=== PATIENT | female | born 1970 | race Caucasian/White ===

== ENCOUNTER 2017-12-03 10:12 | Inpatient (IN) | payer SELFPAY ==
[2017-12-03] VITALS (191 sets, daily range): BP systolic 166–174; BP diastolic 103–108; PULSE 102–105; TEMP 98.1–98.7; O2SAT 88–99
[~2017-12-03] VITALS: Ht 167.6 cm; Wt 83.1 kg
[2017-12-03 11:27] LABS: HEMOGLOBIN 11.5 g/dl (12.5-16.0); MEAN CELL VOLUME 83 fl (80.0-100.0); MEAN CORPUSCULAR HEMOGLOBIN 27 pg (27.0-31.0); MEAN CORPUSCULAR HGB CONC 32 g/dl (33.0-37.0); MEAN PLATELET VOLUME 9.5 fl (7.4-10.4); PLATELET COUNT 404 K/mm3 (130-400); RED BLOOD COUNT 4.29 M/mm3 (4.10-5.30); REDCELL DISTRIBUTION WIDTH-CV 14.8 % (11.5-14.5)
[2017-12-03 11:29] LABS: INR 0.8 (0.8-3.0); PROTHROMBIN TIME 9.2 SECONDS (9.7-12.8)
[2017-12-03 11:33] LABS: HEMATOCRIT 35.8 % (37.0-47.0)
[2017-12-03 11:34] LABS: ALBUMIN 3.6 gm/dL (3.5-5.0); BILIRUBIN,TOTAL 0.5 mg/dL (0.0-1.0); CALCIUM 9.2 mg/dL (8.4-10.2); CREATININE, serum 0.69 mg/dL (0.52-1.25); POTASSIUM 3.1 mmol/L (3.4-5.0); TOTAL PROTEIN 6.7 gm/dL (6.4-8.2)
[2017-12-03 11:36] LABS: D-DIMER < 200.00 ng/mLDDu (200-230)
[2017-12-03 11:49] LABS: TROPONIN-I 0.069 ng/mL (0.000-0.034)
[2017-12-03 12:11] LABS: BAND 1 % (0-10); NEUTROPHILS 99 % (42.0-75.2)
[2017-12-03 12:12] LABS: PLATELET ESTIMATE INCREASED (NORMAL); POLYCHROMASIA 2+; TOXIC GRANULATION PRESENT
[2017-12-03 12:45] LABS: COLLECTION METHOD CLEAN CATCH
[2017-12-03 12:51] LABS: MUCOUS Present /lpf; PH 6 (5-8); SQUAMOUS EPITHELIAL None Seen /hpf; URINE APPEARANCE Clear; URINE BACTERIA None Seen /hpf; URINE BILIRUBIN Negative (NEGATIVE); URINE BLOOD Negative (NEGATIVE); URINE COLOR Yellow; URINE GLUCOSE 1+ (NEGATIVE); URINE KETONE Negative (NEGATIVE); URINE LEUKOCYTE ESTERASE Negative (NEGATIVE); URINE NITRATE Negative (NEGATIVE); URINE PROTEIN(semi-quant) 1+ (NEGATIVE); URINE RBC 0-2 /hpf; URINE UROBILINOGEN Negative (NEGATIVE)
[2017-12-04] VITALS (453 sets, daily range): BP systolic 128–167; BP diastolic 75–108; PULSE 68–104; TEMP 97.5–98; O2SAT 84–100
[2017-12-04 06:28] LABS: BASO % 0.2 % (0.0-2.0); EOS % 0.2 % (0-4.0); GRAN # 13.9 (1.4-6.5); GRAN % 72.5 % (42.2-75.2); HEMATOCRIT 34.8 % (37.0-47.0); HEMOGLOBIN 11.1 g/dl (12.5-16.0); LYMPH # 4.2 (1.2-3.4); LYMPH % 21.9 % (20.0-51.0); MEAN CELL VOLUME 84 fl (80.0-100.0); MEAN CORPUSCULAR HEMOGLOBIN 27 pg (27.0-31.0); MEAN CORPUSCULAR HGB CONC 32 g/dl (33.0-37.0); MEAN PLATELET VOLUME 9.9 fl (7.4-10.4); MONO # 0.9 (0.1-0.6); MONO % 4.5 % (1.7-9.3); PLATELET COUNT 356 K/mm3 (130-400); RED BLOOD COUNT 4.17 M/mm3 (4.10-5.30); REDCELL DISTRIBUTION WIDTH-CV 14.6 % (11.5-14.5)
[2017-12-04 06:38] LABS: CALCIUM 8.5 mg/dL (8.4-10.2); CHOLESTEROL RISK RATIO 2.8; CREATININE, serum 0.74 mg/dL (0.52-1.25); MAGNESIUM 1.9 mg/dL (1.6-2.3)
[2017-12-04 06:44] LABS: POTASSIUM 2.9 mmol/L (3.4-5.0)
[2017-12-04 07:05] LABS: TROPONIN-I 0.079 ng/mL (0.000-0.034)
[2017-12-04 15:26] LABS: CALCIUM 8.6 mg/dL (8.4-10.2); CREATININE, serum 0.79 mg/dL (0.52-1.25); POTASSIUM 3.4 mmol/L (3.4-5.0)
[2017-12-04 15:39] LABS: TROPONIN-I 0.059 ng/mL (0.000-0.034)
[2017-12-04] MEDS ORDERED: COREG 6.256.25 MG/TA PO (16:05)
[2017-12-04] MEDS ORDERED: ASPIRIN 81M81 MG/TA2 PO (16:05)
[2017-12-04] MEDS ORDERED: ZESTRIL 20MG TA20 MG PO (16:05)
== END 2017-12-04 16:17 | disposition home or self-care (01) | DRG 282 ==
LOC: COL.ER 10:12 → ICU 12:48 → EDBEDREQ 17:43 → ICU 18:31
PROVIDERS: Emergency Medicine; Family Medicine; Physician Assistant; Physician Assistant Medical
DX: I11.0 Hypertensive heart disease with heart failure (principal); I21.A1 Myocardial infarction type 2; I50.9 Heart failure, unspecified; I16.0 Hypertensive urgency; D72.829 Elevated white blood cell count, unspecified; E87.6 Hypokalemia; J44.9 Chronic obstructive pulmonary disease, unspecified; F15.10 Other stimulant abuse, uncomplicated
CPT/HCPCS: 99223-AI; 99232-AI; 99239; G0378; J1940; J2270; J3480

== ENCOUNTER → 2018-02-01 | Outpatient (CLI) | payer OTHER ==
[~2018-02-01] MED LIST: ASPIRIN 81M81 MG/TA2 PO; COREG 6.256.25 MG/TA PO; ZESTRIL 20MG TA20 MG PO
== END ==
LOC: COL.PUL 09:58
DX: Z02.71 Encounter for disability determination (principal); F17.210 Nicotine dependence, cigarettes, uncomplicated

== ENCOUNTER 2019-03-01 14:43 | Inpatient (IN) | payer SELFPAY ==
[~2019-03-01] VITALS: Ht 167.6 cm; Wt 85.8 kg
[2019-03-01 15:35] LABS: BASO # 0.1 (0.0-0.2); BASO % 0.4 % (0.0-2.0); EOS # 0.1 (0.0-0.7); EOS % 0.7 % (0-4.0); GRAN # 13.1 (1.4-6.5); GRAN % 81.4 % (42.2-75.2); HEMATOCRIT 39.2 % (37.0-47.0); HEMOGLOBIN 12.6 g/dl (12.5-16.0); LYMPH # 2.1 (1.2-3.4); MEAN CELL VOLUME 81 fl (80.0-100.0); MEAN CORPUSCULAR HEMOGLOBIN 26 pg (27.0-31.0); MEAN CORPUSCULAR HGB CONC 32 g/dl (33.0-37.0); MEAN PLATELET VOLUME 9.6 fl (7.4-10.4); MONO # 0.6 (0.1-0.6); MONO % 3.7 % (1.7-9.3); PLATELET COUNT 512 K/mm3 (130-400); RED BLOOD COUNT 4.85 M/mm3 (4.10-5.30); REDCELL DISTRIBUTION WIDTH-CV 14.3 % (11.5-14.5)
[2019-03-01 15:41] LABS: ALBUMIN 4.2 gm/dL (3.5-5.0); BILIRUBIN,TOTAL 0.5 mg/dL (0.0-1.0); CALCIUM 9.2 mg/dL (8.4-10.2); CREATININE, serum 0.75 (0.52-1.25); POTASSIUM 3.6 mmol/L (3.4-5.0); TOTAL PROTEIN 7.7 gm/dL (6.4-8.2)
[2019-03-01 15:54] LABS: TROPONIN-I 0.037 ng/mL (0.000-0.035)
[2019-03-01] MEDS ORDERED: PLAVIX 75MG TAB75 MG PO (21:25)
[2019-03-01] MEDS ORDERED: COREG12.5 MG PO (21:26)
[2019-03-01] MEDS ORDERED: DIFLUCAN150 MG PO (21:27)
[2019-03-01] MEDS ORDERED: PRIL40 PO (21:28)
[2019-03-01] MEDS ORDERED: PREDNISONE20 MG PO (21:29)
[2019-03-01] MEDS ORDERED: NORVASC 5MG5 MG/TAB PO (21:29)
[2019-03-01] MEDS ORDERED: BEVESPI AEROS10.7 GM IH (21:30)
[2019-03-01] MEDS ORDERED: VENTOLIN0.09 MG IH (21:30)
[2019-03-01] MEDS ORDERED: COZAAR 50MG50 MG/TAB PO (21:31)
[2019-03-01 22:18] VITALS: BP 148/91; PULSE 96; TEMP 97.7
--- NOTE | 2019-03-01 22:30 | NUR ---
Patient arrived to medical floor at approximately 2100 from ER. Alert and oriented x 4, and able to make needs known. Denies having pain and discomfort at this time. Does report SOB with exertion. Breathing labored, shallow respirations. Unlabored at rest. LS expiratory wheezes throughout. HRR. Telemetry in place. Capillary refill less than 3 seconds. Non-tenting skin turgor. Stated that she felt hot and sweaty and wanted to take a shower. PRINCIPAL RESEARCH ECONOMIST assisted patient with shower. Stated she felt much better afterwards. Voices no other questions, needs, or concerns at this time. Periphearl IV to right hand and left AC flushed. Both sites are without redness, warmth, swelling, and pain. Resting in bed with call light within reach.
[2019-03-01 23:41] VITALS: BP 141/83; PULSE 84; TEMP 98.1
--- NOTE | 2019-03-02 00:05 | NUR ---
Patient stated that she wanted to be a DNR, and verified that she did not, for any reason, want her heart restarted if it was to stop. Called and spoke with Dr. Ceron, who gave order for DNR.
[2019-03-02 03:32] VITALS: BP 145/63; BP 163/101; PULSE 92; TEMP 98.3
--- NOTE | 2019-03-02 04:42 | NUR ---
Patient given PRN breathing treatment for wheezes by RT. Reports cough. Given orange juice and jello as requested for dry mouth. Resting in bed with eyes closed at this time. Call light is within reach.
[2019-03-02 07:52] LABS: BASO % 0.2 % (0.0-2.0); EOS % 0.1 % (0-4.0); GRAN # 13.2 (1.4-6.5); GRAN % 84.7 % (42.2-75.2); HEMOGLOBIN 11.5 g/dl (12.5-16.0); LYMPH # 1.6 (1.2-3.4); LYMPH % 10.2 % (20.0-51.0); MEAN CELL VOLUME 81 fl (80.0-100.0); MEAN CORPUSCULAR HEMOGLOBIN 26 pg (27.0-31.0); MEAN CORPUSCULAR HGB CONC 32 g/dl (33.0-37.0); MEAN PLATELET VOLUME 9.4 fl (7.4-10.4); MONO # 0.6 (0.1-0.6); MONO % 4.1 % (1.7-9.3); REDCELL DISTRIBUTION WIDTH-CV 14.4 % (11.5-14.5)
[2019-03-02 07:58] VITALS: BP 160/80; PULSE 89; TEMP 98.1
[2019-03-02 08:04] LABS: CHOLESTEROL RISK RATIO 3.3
[2019-03-02 08:07] LABS: HEMATOCRIT 36.4 % (37.0-47.0); PLATELET COUNT 385 K/mm3 (130-400)
[2019-03-02 08:13] LABS: ALBUMIN 3.9 gm/dL (3.5-5.0); BILIRUBIN,TOTAL 0.3 mg/dL (0.0-1.0); CALCIUM 8.9 mg/dL (8.4-10.2); CREATININE, serum 0.66 (0.52-1.25); POTASSIUM 3.3 mmol/L (3.4-5.0); TOTAL PROTEIN 6.9 gm/dL (6.4-8.2)
--- NOTE | 2019-03-02 09:20 | NUR ---
Pt assessment complete. Pt is sitting up in bed, seems anxious and fidgety. She is A/O x3. Her breathing is tachy, pt reports SOB. Pt currently on RA. She reports a continued dry cough, PRN cough medicine administered. Pt denies any pain. No N/V, ate breakfast without complications. POC discussed with pt who verbalizes understanding. Call light within reach.
--- NOTE | 2019-03-02 09:44 | NUR ---
SW attended clinical rounds to discuss discharge planning. Patient lives alone in [place]. Patient reports her daughter lives in as well and is supportive financially. Patient's PCP is Dr Last Cristina and she [place] [facility] reports she has difficulty paying for medications because she does not have insurance. Patient reports she uses [employer] coupons and receives financial support from family. 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 Patient has applied for medicaid in the past but reports she was denied and is unsure of the reason. SW reports she will speak to the [facility] counselor and she will meet with patient. SW reports that at the time of discharge, SW will assit with finding [employer] coupons for new medications. SW also reported that she may be able to provide a medication voucher. SW will continue to follow.
[2019-03-02 12:23] VITALS: BP 119/86; PULSE 97; TEMP 97.7
--- NOTE | 2019-03-02 13:36 | NUR ---
Pt wore bipap for short amount of time. Now has it off and sleeping. Breathing even and unlabored does not appear to be in any respiratory distress. Will continue to monitor.
--- NOTE | 2019-03-02 15:23 | NUR ---
Pt agreeable to wear bipap at this time stating, "whatever will help me get better faster". Use of bipap explained to patient. No needs at this time.
[2019-03-02 17:50] VITALS: BP 157/86; PULSE 89; TEMP 98.8
--- NOTE | 2019-03-02 18:09 | NUR ---
Pt had uneventful day, she remained on RA. Ambulating without difficulty breathing. She wore the bipap for a short period of time today. Pt reported excessive coughing and wheezing after eating, PLANS EXAMINER reports patient eats VERY fast amongst breathing fast. Pt encouraged to slow PO intake. She denies feeling as if she is aspirating food into lungs and reports she has had a lot of esophageal issues in the past requiring scopes and medications. ODALYS Cunningham notified. This nurse has witnessed patient taking pills without difficulty, coughing or choking as well as eating snacks without difficulties. Pt in shower at this time. POC discussed with patient who verbalizes understanding. Will continue to monitor.
[2019-03-02 19:34] VITALS: BP 156/95; PULSE 99; TEMP 99.2
--- NOTE | 2019-03-02 20:00 | NUR ---
Patient assessed at this time. Alert and oriented x 4, and able to make needs known. Denies having pain and discomfort. Peripheral IV to left AC and right hand flushed. Sites are without redness, warmth, swelling, and pain. Does complain of SOB and dyspnea at rest, especially after eatting. On room air. Does have BIPAP, and encouraged use. Compains that mask irritates her nose, but states she will try and wear it when she sleeps. LS with inspiratory and expiratory wheezes throughout, and coarse crackles in lower lobes. Respirations shallow and labored. Encouraged to take slow, deep breaths, which helped. Took self for a walk. HRR. Telemetry in place. Capillary refill less than 3 seconds. Non-tenting skin turgor. BSAx4. Abdomen soft and non-tender. No edema noted. Voices no questions, needs, or concerns at this time. Resting in bed with call light within reach.
[2019-03-02 23:46] VITALS: BP 134/65; PULSE 86; TEMP 98.3
--- NOTE | 2019-03-03 02:46 | NUR ---
Patient complaining of pain to peripheral IV to left AC. Requested IV site to be D/C'd. Peripheral IV to right hand working well. D/C'd IV site to left AC for patient comfort as requested. Voices no other questions, needs, or concerns at this time. Wore BIPAP until about 0130. Has been awake in room snacking and walking around since. In bed on phone at this time. Call light is within reach.
[2019-03-03 04:00] VITALS: BP 159/82; PULSE 92; TEMP 98.2
--- NOTE | 2019-03-03 04:20 | NUR ---
Patient given PRN Robitussin as requested for cough. Voices no other questions, needs, or concerns at this time. Resting in bed with call light within reach.
[2019-03-03 06:49] LABS: HEMATOCRIT 34.6 % (37.0-47.0); HEMOGLOBIN 10.8 g/dl (12.5-16.0); MEAN CELL VOLUME 82 fl (80.0-100.0); MEAN CORPUSCULAR HEMOGLOBIN 26 pg (27.0-31.0); MEAN CORPUSCULAR HGB CONC 31 g/dl (33.0-37.0); PLATELET COUNT 400 K/mm3 (130-400); RED BLOOD COUNT 4.22 M/mm3 (4.10-5.30); REDCELL DISTRIBUTION WIDTH-CV 14.6 % (11.5-14.5)
[2019-03-03 07:09] LABS: CALCIUM 9.2 mg/dL (8.4-10.2); CREATININE, serum 0.62 (0.52-1.25); POTASSIUM 4.1 mmol/L (3.4-5.0)
[2019-03-03 07:32] LABS: LYMPHOCYTE 6 % (20.0-51.0); NEUTROPHILS 93 % (42.0-75.2); PLATELET ESTIMATE NORMAL (NORMAL)
[2019-03-03 10:31] VITALS: BP 162/82; PULSE 78; TEMP 98
[2019-03-03 15:38] VITALS: BP 122/55; PULSE 79; TEMP 98.9
--- NOTE | 2019-03-03 19:34 | NUR ---
PT C/O COUGH THROUGOUT DAY, ADMINSTERED PRN COUGH SYURP A COUPLE TIMES. PT HAS C/O DIARREAH TODAY, THIS NURSE INFORMED COLLETTE LAWRENCE AND RECIEVED VERBAL ORDER TO GET A STOOL SAMPLE ON HER, PT AWARE. ZHANG ZAMORA STATED THAT THEY DIDNT SEE ANY ISSUES WITH SWALLOW STUDY TODAY. ENDOSCOPY PLANNED FOR TOMORROW AT 1330, PROVIDER IN TO TALK TO PT ABOUT PROCEDURE. PT HAS BEEN ON RA ANS SATS REMAIN WNL. PT REMAINS HAVING NOTE ANXIETY.
--- NOTE | 2019-03-03 20:30 | NUR ---
Patient assessed at this time. Alert and oriented x 4, and able to make needs known. Patient does complain of SOB and dyspnea on exertion. Labored breathing when up moving around. LS with inspiratory and expiratory wheezes throughout, and coarse crackles in lower lobes. HRR. Telemetry in place. Capillary refill less than 3 seconds. Non-tenting skin turgor. BSAx4. Abdomen soft and non-tender. Stool sample obtained and taken to lab to test for C-diff. Continues to report loose stools. No edema noted. Patient took shower. During shower, IV to right hand came out. Attempted to place new once, but unable. This nurse attempted x 2, another nurse attempted x 2. Refusing any further attempts at this time.
[2019-03-03 21:24] VITALS: BP 162/84; PULSE 91; TEMP 98.5
[2019-03-03 23:12] VITALS: BP 153/78; PULSE 83; TEMP 98.3
--- NOTE | 2019-03-03 23:20 | NUR ---
Spoke with NADIR eckert unable to get IV access at this time. Patient did agree that she will let someone else try, but not until later on. NADIR ok with this. C-diff negative. Requested PRN Imodium and PRN melatonin to help patient sleep as requested. Orders received, and given as ordered. Voices no other questions, needs, or concerns at this time. Resting in bed with call light within reach.
[2019-03-04 04:05] VITALS: BP 154/72; BP 167/80; PULSE 84; TEMP 98.4
[2019-03-04 06:25] LABS: HEMOGLOBIN 10.1 g/dl (12.5-16.0); MEAN CELL VOLUME 84 fl (80.0-100.0); MEAN CORPUSCULAR HEMOGLOBIN 25 pg (27.0-31.0); MEAN CORPUSCULAR HGB CONC 30 g/dl (33.0-37.0); MEAN PLATELET VOLUME 11.3 fl (7.4-10.4); RED BLOOD COUNT 3.97 M/mm3 (4.10-5.30)
[2019-03-04 06:33] LABS: HEMATOCRIT 33.4 % (37.0-47.0); PLATELET COUNT 254 K/mm3 (130-400)
[2019-03-04 06:37] LABS: CALCIUM 8.8 mg/dL (8.4-10.2); CREATININE, serum 0.72 (0.52-1.25); POTASSIUM 4.4 mmol/L (3.4-5.0)
[2019-03-04 06:54] LABS: LYMPHOCYTE 9 % (20.0-51.0); NEUTROPHILS 88 % (42.0-75.2); PLATELET ESTIMATE NORMAL (NORMAL)
--- NOTE | 2019-03-04 07:11 | NUR ---
Spoke with house wirer helper due to two nurses unable to get IV access. Recommends that vascular services be called to get new IV access. Given PRN Robitussin as requested for cough. Consent obtained and signed for EGD today. Voices no questions, needs, or concerns. Resting in bed, call light is within reach. Has been NPO since 399.
--- NOTE | 2019-03-04 07:20 | NUR ---
Patient is awake and resting in bed on left side. States she feels terrible and feels like she is short of breath. Offered oxygen or bi-pap and declined. Called respiratory therapy for patient to receive breathing treatment and she agreed to this. Consent for EGD obtained. Patient is up independent in room and is noted to be short of breath and also short of breath at rest during conversation. She verbalizes she has no other needs. Call light and personal items are within reach.
[2019-03-04 09:06] VITALS: BP 142/74; PULSE 99; TEMP 98.2
[2019-03-04 10:36] LABS: ARTERIAL BLD GAS O2 SATURATION 95.2 % (92-100); ARTERIAL BLD GAS TCO2 CT 27.5; ARTERIAL BLOOD GAS BASE EXCESS 1.8 (-2-2); ARTERIAL BLOOD GAS HCO3 26.2 meq/L (22-26); ARTERIAL BLOOD GAS PCO2 40.5 mmHg (35-45); ARTERIAL BLOOD GAS PO2 76.7 mmHg (80-100); ARTERIAL BLOOD GAS pH 7.43 (7.35-7.45)
[2019-03-04 12:02] LABS: COLLECTION METHOD CLEAN CATCH
[2019-03-04 12:10] LABS: MUCOUS Present /lpf; PH 5 (5-8); SQUAMOUS EPITHELIAL 0-2 /hpf; URINE APPEARANCE Clear; URINE BACTERIA None Seen /hpf; URINE BILIRUBIN Negative (NEGATIVE); URINE BLOOD 1+ (NEGATIVE); URINE COLOR Yellow; URINE GLUCOSE Negative (NEGATIVE); URINE KETONE Negative (NEGATIVE); URINE LEUKOCYTE ESTERASE Negative (NEGATIVE); URINE NITRATE Negative (NEGATIVE); URINE PROTEIN(semi-quant) Negative (NEGATIVE); URINE RBC 0-2 /hpf; URINE UROBILINOGEN Negative (NEGATIVE)
[2019-03-04 12:18] LABS: TRICYCLIC ANTIDEPRESS URINE NEGATIVE
[2019-03-04 13:38] VITALS: BP 126/70; PULSE 68; TEMP 97.8
[2019-03-04 16:08] VITALS: BP 148/83; PULSE 86; TEMP 97.4
[2019-03-04 16:09] LABS: HEPATITIS B CORE AB,TOTAL Negative (()); HEPATITIS B SURFACE ANTIBODY <2.0 (()); HEPATITIS B SURFACE ANTIGEN Negative (Negative)
[2019-03-04 17:16] LABS: HEPATITIS C VIRUS ANTIBODY Reactive (Negative)
--- NOTE | 2019-03-04 18:14 | NUR ---
Patient is resting in bed on left side, eyes are closed. Can audibly hear wheezing while standing in the doorway. Facial expression is relaxed. Call light and personal items are within reach.
[2019-03-04 19:22] VITALS: BP 156/71; PULSE 73; TEMP 98.7
--- NOTE | 2019-03-04 19:30 | NUR ---
Patient assessed at this time. Alert and oriented x 4, and able to make needs known. Denies having pain and discomfort at this time. Peripheral IV to left wrist flushed. Site is without redness, warmth, swelling, and pain. Patient continues to complain of SOB and dyspnea. Oxygen levels 95-99% on room air. Respirations shallow and labored. LS with inspiratory and expiratory wheezes throughout. Moist cough, but unable to produce sputum. Given PRN Robitussin as requested. Given nebulizer treatments by RT per orders. Encouraged to wear BIPAP. Stated she was not ready to wear at this time, but will call when ready to go to bed to have staff assist with putting on BIPAP. HRR. electronic device monitor in place. Capillary refill less than 3 seconds. Non-tenting skin turgor. BSAx4. Abdomen soft and non-tender. No edema noted. Denies having any questions, needs, or concerns at this time. Call light is within reach.
[2019-03-04 22:51] VITALS: BP 140/82; PULSE 84; TEMP 98.4
--- NOTE | 2019-03-04 23:02 | NUR ---
Patient called this nurse in room. Stated that she woke up and was very short of breath. VS: 98.4 84 22 140/82 96% RA. Respirations shallow and labored. Encouraged to take slow, deep breaths. Kept stating that she couldn't breath and needed something. Stated her IV site was bothering her and she was going to take it out. Reminded patient that we need IV access, and reminded her that it was very difficult to get IV access last night. Agreed with this nurse and stated she would leave it alone. Offered to help put on BIPAP for a while, and agreeable, stating she would do anything to feel better. Called RT as well and requested PRN breathing treatment for patient.
[2019-03-05] VITALS: BP 134/63; PULSE 76; TEMP 97.7
[2019-03-05 03:28] VITALS: BP 161/83; PULSE 85; TEMP 98.3
--- NOTE | 2019-03-05 05:35 | NUR ---
Patient wore BIPAP for approximately 3 hours total last night. Continues to have SOB and dyspnea. Given breathing treatments by RT per orders. Given PRN Robitussin as requested. Patient did take a shower. Has been drinking pepsi during the night, and complaining of not being able to sleep. Educated that pepsi has caffine in it, which will keep her awake. Stated that it doesn't keep her awake, just her SOB wakes her up and makes her anxious. In room on phone at this time. Call light is within reach.
[2019-03-05 06:00] LABS: HEMOGLOBIN 10.2 g/dl (12.5-16.0); MEAN CELL VOLUME 83 fl (80.0-100.0); MEAN CORPUSCULAR HEMOGLOBIN 25 pg (27.0-31.0); MEAN CORPUSCULAR HGB CONC 30 g/dl (33.0-37.0); MEAN PLATELET VOLUME 9.9 fl (7.4-10.4)
[2019-03-05 06:05] LABS: PLATELET COUNT 380 K/mm3 (130-400)
[2019-03-05 06:09] LABS: ALBUMIN 3.5 gm/dL (3.5-5.0); BILIRUBIN,TOTAL 0.2 mg/dL (0.0-1.0); CALCIUM 8.5 mg/dL (8.4-10.2); CREATININE, serum 0.68 (0.52-1.25); POTASSIUM 4.3 mmol/L (3.4-5.0); TOTAL PROTEIN 6.4 gm/dL (6.4-8.2)
[2019-03-05 06:32] LABS: BAND 1 % (0-10); EOSINOPHIL 1 % (0-4); NEUTROPHILS 71 % (42.0-75.2)
[2019-03-05 06:33] LABS: HYPOCHROMIA 1+; OVALOCYTES 1+; POIKILOCYTOSIS 1+
[2019-03-05 06:34] LABS: LYMPHOCYTE 20 % (20.0-51.0)
--- NOTE | 2019-03-05 07:00 | NUR ---
Received report from off going shift. Patient is resting in bed, eyes closed on left side. Respirations are even and non-labored. Is not wearing bi-pap. Respiratory therapy has been in prior. Call light and personal items are within reach.
[2019-03-05 08:30] VITALS: BP 151/75; PULSE 97; TEMP 98
[2019-03-05] MEDS ORDERED: ZITHROMAX 250M250 MG PO (10:41)
[2019-03-05] MEDS ORDERED: ROBITUSSIN DM 105 ML PO (10:42)
[2019-03-05] MEDS ORDERED: PULMICORT0.5 MG/2 M IH (10:43)
--- NOTE | 2019-03-05 12:26 | NUR ---
LUCIA assisted patient with Medication Voucher to [facility]. Faxed Voucher to [facility] at [phone]. Educated patient on expectations.
--- NOTE | 2019-03-05 12:39 | NUR ---
Patient discharged home at 1240 via private car accompanied by daughter. Home meds returned to patient from pharmacy. Personal items removed from room. Did not wish to review discharge instructions. Patient left prior to staff returning to ambulate out.
[2019-03-05] MEDS ORDERED: LIPITOR 10MG10 MG PO (17:05)
== END 2019-03-05 12:40 | disposition home or self-care (01) | DRG 190 ==
LOC: COL.ER 14:43 → MEDICAL 18:43
PROVIDERS: Emergency Medicine; Internal Medicine Gastroenterology; Nurse Practitioner Family; Physician Assistant; ADMIT Internal Medicine
PROC: 0DJ08ZZ Inspection of Upper Intestinal Tract, Via Natural or Artificial Opening Endoscopic (ICD-10-PCS; principal; 2019-03-04 13:30)
DX: J44.1 Chronic obstructive pulmonary disease with (acute) exacerbation (principal); I21.A1 Myocardial infarction type 2; I25.10 Atherosclerotic heart disease of native coronary artery without angina pectoris; I50.9 Heart failure, unspecified; R06.02 Shortness of breath; D72.829 Elevated white blood cell count, unspecified; D47.3 Essential (hemorrhagic) thrombocythemia; B19.20 Unspecified viral hepatitis C without hepatic coma; E87.6 Hypokalemia; K21.9 Gastro-esophageal reflux disease without esophagitis; I11.0 Hypertensive heart disease with heart failure; E09.65 Drug or chemical induced diabetes mellitus with hyperglycemia; F41.9 Anxiety disorder, unspecified; Z95.5 Presence of coronary angioplasty implant and graft
CPT/HCPCS: OP; 99233-AI; 99239; G0378; J1650; J1956; J2704; J2920; J2930; J7030; J7512; Q9967

== ENCOUNTER 2019-04-06 12:10 | Emergency (ER) | payer SELFPAY ==
[~2019-04-06] VITALS: Ht 167.6 cm; Wt 89.5 kg
[~2019-04-06 12:10] MED LIST changes: +BEVESPI AEROS10.7 GM IH; +COREG12.5 MG PO; +COZAAR 50MG50 MG/TAB PO; +DIFLUCAN150 MG PO; +LIPITOR 10MG10 MG PO; +NORVASC 5MG5 MG/TAB PO; +PLAVIX 75MG TAB75 MG PO; +PREDNISONE20 MG PO; +PRIL40 PO; +PULMICORT0.5 MG/2 M IH; +ROBITUSSIN DM 105 ML PO; +VENTOLIN0.09 MG IH; +ZITHROMAX 250M250 MG PO
[2019-04-06 12:17] VITALS: TEMP 98.4
[2019-04-06 13:49] LABS: BASO # 0.1 (0.0-0.2); BASO % 0.7 % (0.0-2.0); EOS # 0.2 (0.0-0.7); EOS % 1.4 % (0-4.0); GRAN # 8.5 (1.4-6.5); GRAN % 80.1 % (42.2-75.2); HEMOGLOBIN 10.6 g/dl (12.5-16.0); LYMPH # 1.4 (1.2-3.4); LYMPH % 12.9 % (20.0-51.0); MEAN CELL VOLUME 79 fl (80.0-100.0); MEAN CORPUSCULAR HEMOGLOBIN 24 pg (27.0-31.0); MEAN CORPUSCULAR HGB CONC 31 g/dl (33.0-37.0); MEAN PLATELET VOLUME 9.7 fl (7.4-10.4); MONO # 0.4 (0.1-0.6); MONO % 4.2 % (1.7-9.3); PLATELET COUNT 401 K/mm3 (130-400); RED BLOOD COUNT 4.37 M/mm3 (4.10-5.30)
[2019-04-06 13:58] LABS: ALBUMIN 3.7 gm/dL (3.5-5.0); BILIRUBIN,TOTAL 0.4 mg/dL (0.0-1.0); CALCIUM 8.7 mg/dL (8.4-10.2); CREATININE, serum 0.65 (0.52-1.25); HEMATOCRIT 34.4 % (37.0-47.0); INR 0.9 (0.8-3.0); POTASSIUM 3.8 mmol/L (3.4-5.0); PROTHROMBIN TIME 10.2 SECONDS (9.7-12.8); TOTAL PROTEIN 6.7 gm/dL (6.4-8.2)
[2019-04-06 14:10] LABS: TROPONIN-I 0.028 ng/mL (0.000-0.035)
[2019-04-06] MEDS ORDERED: LASIX 40MG TABL40 MG PO (14:49)
[2019-04-06 17:38] VITALS: BP 141/84; PULSE 84
== END 2019-04-06 17:38 | disposition home or self-care (01) ==
LOC: COL.ER 12:10
PROVIDERS: Emergency Medicine
DX: J44.1 Chronic obstructive pulmonary disease with (acute) exacerbation (principal); I11.0 Hypertensive heart disease with heart failure; I50.9 Heart failure, unspecified; I25.10 Atherosclerotic heart disease of native coronary artery without angina pectoris; R06.01 Orthopnea; Z79.82 Long term (current) use of aspirin; Z79.02 Long term (current) use of antithrombotics/antiplatelets; Z87.891 Personal history of nicotine dependence; Z95.5 Presence of coronary angioplasty implant and graft
CPT/HCPCS: J2930; J7030

== ENCOUNTER 2019-07-25 11:34 | Inpatient (IN) | payer OTHER ==
[~2019-07-25] VITALS: Ht 167.6 cm; Wt 60.8 kg
[~2019-07-25 11:34] MED LIST changes: +IPRATROPIUM BROM3 M1 INH; +K-DUR20 MEQ PO; +KLONOPIN 0.5MG0.5 MG PO; +LASIX 20MG TABL20 MG PO; +LASIX 40MG TABL40 MG PO; +PRINIVIL20 MG PO; +PROTONIX20 MG PO; +ZITHROMAX500 M2 PO; +[UNRECOGNIZED DRUG - SUPPLY] IH
[2019-07-25 14:57] LABS: BASO # 0.1 (0.0-0.2); EOS # 0.1 (0.0-0.7); EOS % 1.4 % (0-4.0); GRAN # 5.7 (1.4-6.5); GRAN % 74.7 % (42.2-75.2); HEMOGLOBIN 10.3 g/dl (12.5-16.0); LYMPH # 1.3 (1.2-3.4); LYMPH % 17.1 % (20.0-51.0); MEAN CELL VOLUME 78 fl (80.0-100.0); MEAN CORPUSCULAR HEMOGLOBIN 24 pg (27.0-31.0); MEAN CORPUSCULAR HGB CONC 31 g/dl (33.0-37.0); MEAN PLATELET VOLUME 9.6 fl (7.4-10.4); MONO # 0.4 (0.1-0.6); MONO % 5.4 % (1.7-9.3); PLATELET COUNT 385 K/mm3 (130-400); RED BLOOD COUNT 4.33 M/mm3 (4.10-5.30); REDCELL DISTRIBUTION WIDTH-CV 17.4 % (11.5-14.5)
[2019-07-25 14:59] LABS: HEMATOCRIT 33.7 % (37.0-47.0)
[2019-07-25 15:09] LABS: BILIRUBIN,TOTAL 0.5 mg/dL (0.0-1.0); C-REACTIVE PROTEIN 0.7 mg/dL (0.0-0.9); CALCIUM 8.7 mg/dL (8.4-10.2); CREATININE, serum 0.85 (0.52-1.25); POTASSIUM 3.5 mmol/L (3.4-5.0)
[2019-07-25 15:21] LABS: TROPONIN-I 0.051 ng/mL (0.000-0.035)
[2019-07-25 18:24] VITALS: BP 153/99; PULSE 98; TEMP 98.5
[2019-07-25 19:00] LABS: INR 0.9 (0.8-3.0); PROTHROMBIN TIME 10.8 SECONDS (9.7-12.8)
[2019-07-25 19:02] LABS: PARTIAL THROMBOPLASTIN TIME 28.6 SECONDS (26.0-37.0)
[2019-07-25 19:05] LABS: MAGNESIUM 1.8 mg/dL (1.6-2.3)
[2019-07-25 19:13] VITALS: BP 156/97; PULSE 92; TEMP 98.4
[2019-07-25 19:47] LABS: TROPONIN-I 3 HR POST INITIAL 0.051 ng/mL (0.000-0.034)
[2019-07-26] VITALS (9 sets, daily range): BP systolic 138–176; BP diastolic 10–106; PULSE 85–114; TEMP 97.7–98.6
[2019-07-26 07:20] LABS: HEMATOCRIT 35.1 % (37.0-47.0); HEMOGLOBIN 11.1 g/dl (12.5-16.0); MEAN CELL VOLUME 76 fl (80.0-100.0); MEAN CORPUSCULAR HEMOGLOBIN 24 pg (27.0-31.0); MEAN CORPUSCULAR HGB CONC 32 g/dl (33.0-37.0); MEAN PLATELET VOLUME 9.6 fl (7.4-10.4); PLATELET COUNT 436 K/mm3 (130-400); REDCELL DISTRIBUTION WIDTH-CV 17.2 % (11.5-14.5)
[2019-07-26 07:35] LABS: ALBUMIN 4.1 gm/dL (3.5-5.0); BILIRUBIN,TOTAL 0.5 mg/dL (0.0-1.0); CALCIUM 9.3 mg/dL (8.4-10.2); CREATININE, serum 0.72 (0.52-1.25); POTASSIUM 3.9 mmol/L (3.4-5.0); TOTAL PROTEIN 7.2 gm/dL (6.4-8.2)
[2019-07-26 07:44] LABS: TROPONIN-I 0.035 ng/mL (0.000-0.035)
[2019-07-26 08:24] LABS: BAND 7 % (0-10); LYMPHOCYTE 9 % (20.0-51.0); NEUTROPHILS 84 % (42.0-75.2); PLATELET ESTIMATE NORMAL (NORMAL)
[2019-07-27 02:37] VITALS: BP 125/66; PULSE 85; TEMP 98.8
[2019-07-27 07:50] VITALS: BP 132/71; PULSE 81; TEMP 98.6
[2019-07-27 11:53] VITALS: BP 138/76; PULSE 84; TEMP 98.2
[2019-07-27 15:44] VITALS: BP 147/84; PULSE 88; TEMP 98.7
[2019-07-27 19:12] VITALS: BP 171/87; PULSE 94; TEMP 98.4
[2019-07-28 01:29] VITALS: BP 113/55; PULSE 73; TEMP 98.4
[2019-07-28 05:38] VITALS: BP 146/94; PULSE 80; TEMP 98.6
[2019-07-28 06:09] LABS: BASO # 0.1 (0.0-0.2); BASO % 0.5 % (0.0-2.0); EOS % 0.1 % (0-4.0); HEMOGLOBIN 10.5 g/dl (12.5-16.0); LYMPH # 2.4 (1.2-3.4); LYMPH % 19.7 % (20.0-51.0); MEAN CELL VOLUME 78 fl (80.0-100.0); MEAN CORPUSCULAR HEMOGLOBIN 24 pg (27.0-31.0); MEAN CORPUSCULAR HGB CONC 30 g/dl (33.0-37.0); MONO # 0.6 (0.1-0.6); MONO % 5.2 % (1.7-9.3); PLATELET COUNT 401 K/mm3 (130-400); RED BLOOD COUNT 4.42 M/mm3 (4.10-5.30); REDCELL DISTRIBUTION WIDTH-CV 17.2 % (11.5-14.5)
[2019-07-28 06:11] LABS: HEMATOCRIT 34.6 % (37.0-47.0)
[2019-07-28 06:20] LABS: CALCIUM 8.8 mg/dL (8.4-10.2); CREATININE, serum 0.78 (0.52-1.25); POTASSIUM 3.8 mmol/L (3.4-5.0)
[2019-07-28 07:26] VITALS: BP 150/91; PULSE 80; TEMP 98.8
[2019-07-28] MEDS ORDERED: PLAVIX 75MG TAB75 MG PO (07:50)
[2019-07-28] MEDS ORDERED: PREDNISONE20 MG PO (07:51)
== END 2019-07-28 11:50 | disposition home or self-care (01) | DRG 190 ==
LOC: COL.ER 11:34 → MEDICAL 15:39 → COL.ER 15:39 → MEDICAL 15:40
PROVIDERS: Physician Assistant; ADMIT Student in an Organized Health Care Education/Training Program
DX: J44.1 Chronic obstructive pulmonary disease with (acute) exacerbation (principal); I50.33 Acute on chronic diastolic (congestive) heart failure; I42.9 Cardiomyopathy, unspecified; I11.0 Hypertensive heart disease with heart failure; I25.10 Atherosclerotic heart disease of native coronary artery without angina pectoris; E78.5 Hyperlipidemia, unspecified; B19.20 Unspecified viral hepatitis C without hepatic coma; E66.9 Obesity, unspecified; R74.8 Abnormal levels of other serum enzymes; F41.9 Anxiety disorder, unspecified; Z66 Do not resuscitate; B97.29 Other coronavirus as the cause of diseases classified elsewhere; D72.828 Other elevated white blood cell count; T38.0X5A Adverse effect of glucocorticoids and synthetic analogues, initial encounter; F32.9 Major depressive disorder, single episode, unspecified; L98.8 Other specified disorders of the skin and subcutaneous tissue; K21.9 Gastro-esophageal reflux disease without esophagitis; J06.9 Acute upper respiratory infection, unspecified; I08.0 Rheumatic disorders of both mitral and aortic valves; Z95.5 Presence of coronary angioplasty implant and graft; Z90.49 Acquired absence of other specified parts of digestive tract; Z79.82 Long term (current) use of aspirin; Z87.891 Personal history of nicotine dependence; Z91.14 Patient's other noncompliance with medication regimen
CPT/HCPCS: 99232-AI; 99233-AI; 99239; A9500; J1650; J1940; J2785; J2920; J7512